=== PATIENT | male | born 1975 | race Caucasian/White ===

== ENCOUNTER 2017-07-29 18:00 | Emergency (ER) | payer OTHER ==
[~2017-07-29] VITALS: Ht 170.2 cm; Wt 72.6 kg
[~2017-07-29 18:00] MED LIST: HYDACE5 PO; IBUP800 PO
[2017-07-29] MEDS ORDERED: Cleocin HCl300 MG PO (18:53)
== END 2017-07-29 19:02 | disposition home or self-care (01) ==
LOC: ER 18:00
DX: K04.7 Periapical abscess without sinus (principal); F17.200 Nicotine dependence, unspecified, uncomplicated; Z88.0 Allergy status to penicillin; Z88.8 Allergy status to other drugs, medicaments and biological substances; Z79.899 Other long term (current) drug therapy
CPT/HCPCS: 99283